=== PATIENT | male | born 1965 | race Caucasian/White ===

== ENCOUNTER → 2017-07-15 | Outpatient (CLI) | payer OTHER ==
[2017-07-15 13:44] LABS: BILIRUBIN,URINE NEGATIVE (NEGATIVE); BLOOD/HEMOGLOBIN,URINE NEGATIVE (NEGATIVE); GLUCOSE, URINE 4+ (NEGATIVE); KETONES,URINE NEGATIVE (NEGATIVE); LEUKOCYTE ESTERASE ,URINE NEGATIVE (NEGATIVE); NITRITES,URINE NEGATIVE (NEGATIVE); PROTEIN,URINE NEGATIVE (NEGATIVE); UROBILINOGEN,URINE NORMAL (NORMAL)
[2017-07-15 13:50] LABS: BASOPHILS % (AUTO) 0.6 % (0.2-1.0); EOSINOPHILS # (AUTO) 0.2 x10^3/uL (0.0-0.2); EOSINOPHILS % (AUTO) 1.9 % (0.9-2.9); HEMATOCRIT 46.4 % (42.0-54.0); HEMOGLOBIN 15.6 g/dL (13.5-18.0); LYMPHOCYTES # (AUTO) 2.4 X10^3/uL (1.3-2.9); LYMPHOCYTES % (AUTO) 28.2 % (21.0-51.0); MEAN CORPUSCULAR HEMOGLOBIN 28.1 pg (27.0-34.0); MEAN CORPUSCULAR HGB CONC 33.5 g/dL (33.0-35.0); MEAN CORPUSCULAR VOLUME 83.8 fL (80.0-100.0); MONOCYTES # (AUTO) 0.6 x10^3/uL (0.3-0.8); MONOCYTES % (AUTO) 6.9 % (0.0-13.0); NEUTROPHILS # (AUTO) 5.3 x10^3/uL (2.2-4.8); NEUTROPHILS % (AUTO) 62.4 % (42.0-75.0); PLATELET COUNT 172 X10^3/uL (150.0-450.0); RED BLOOD COUNT 5.54 X10^6/uL (4.7-6.0); RED CELL DISTRIBUTION WIDTH 13.2 % (11.6-16.5); WHITE BLOOD COUNT 8.4 X10^3/uL (3.6-10.0)
[2017-07-15 13:53] LABS: APPEARANCE,URINE CLEAR (CLEAR); BACTERIA,URINE TRACE /HPF (NEGATIVE); COLOR,URINE YELLOW (YELLOW); RBC,URINE NONE SEEN /HPF (NEGATIVE); SQUAMOUS EPITHELIAL CELL,UR RARE /HPF (NEGATIVE)
[2017-07-15 14:01] LABS: ALANINE AMINOTRANSFERASE 50 Units/L (12-78); ALKALINE PHOSPHATASE 66 Units/L (46-116); ASPARTATE AMINO TRANSFERASE 23 Units/L (15-37); BLOOD UREA NITROGEN 17 mg/dL (7-18); CALCIUM 8.9 mg/dL (8.5-10.1); CARBON DIOXIDE 26.3 mmol/L (21-32); CHLORIDE 104 mmol/L (98-107); COR NA(FOR HYPERGLY) 144 mmol/L (136-145); CREATININE 1.06 mg/dL (0.70-1.30); SODIUM 140 mmol/L (136-145); TOTAL PROTEIN 7.4 g/dL (6.4-8.2); eGFR BLACK RACES > 60 (>60); eGFR NON BLACK RACES > 60 (>60)
--- NOTE | 2017-07-15 14:15 | RAD ---
Examination: Chest, PA and lateral views History: Preop Findings: Normal heart size with clear lungs and pleural spaces. ACDF hardware is present. Impression: Chest examination within normal limits. Reported By:
[2017-07-15 14:33] LABS: ERYTHROCYTE SEDIMENTATION RATE 3 MM/HOUR (0-15)
== END ==
LOC: LAB 13:15
PROVIDERS: ATTEND Orthopaedic Surgery
DX: Z01.818 Encounter for other preprocedural examination (principal); Z79.899 Other long term (current) drug therapy; Z11.8 Encounter for screening for other infectious and parasitic diseases; Z79.01 Long term (current) use of anticoagulants; Z01.811 Encounter for preprocedural respiratory examination; Z01.810 Encounter for preprocedural cardiovascular examination; M75.02 Adhesive capsulitis of left shoulder
CPT/HCPCS: 36415; 71020; 80053; 81001; 85025; 85610; 85652; 85730; 86140; 87640; 87641; 93005; 93010

== ENCOUNTER 2017-07-17 08:19 | Day surgery (SDC) | payer OTHER ==
[2017-07-17] MEDS ORDERED: NS 1000 ML 1,000 ML ONE (08:33)
[2017-07-17] MEDS ORDERED: FENTANYL INJ 100 mcg ONE (10:31)
[2017-07-17] MEDS ORDERED: KENALOG INJ 40 MG IM ONE (10:45)
[2017-07-17] MEDS ORDERED: XYLOCAINE-MPF 1% ONE (10:45)
[2017-07-17] MEDS ORDERED: DILAUDID INJ ONE (11:17)
[2017-07-17] MEDS: DILAUDID INJ IVP PRN ×2 (11:18→11:25)
[2017-07-17] MEDS ORDERED: PHENERGAN INJ 25 MG IVP PRN (11:24)
[2017-07-17] MEDS ORDERED: ZOFRAN INJ 4 MG VIAL IVP PRN (11:24)
[2017-07-17] MEDS ORDERED: REGLAN INJ 10 MG VIAL IVP PRN (11:24)
[2017-07-17] MEDS ORDERED: BENADRYL INJ 50 MG VIAL IVP PRN (11:24)
[2017-07-17] MEDS ORDERED: PERCOCET TAB 5/325 MG PO PRN (11:31)
--- NOTE | 2017-07-17 11:45 | RAD ---
Examination: Left shoulder, three views History: Postop Findings: No evidence for fracture, displacement, bone destruction or pathologic calcification. Sligh t degenerative narrowing of joint spaces. The humeral head is in normal position. Impression: Mild degenerative change, no acute process identified. Reported By:
[2017-07-17 12:25] VITALS: BP 149/76
[2017-07-17] MEDS ORDERED: VERSED ONE (15:44)
[2017-07-17] MEDS ORDERED: SUPRANE IN ONE (15:44)
[2017-07-17] MEDS ORDERED: QUELICIN (OR ANECTINE) ONE (15:44)
[2017-07-17] MEDS ORDERED: DIPRIVAN VIAL ONE (15:44)
[2017-07-17] MEDS ORDERED: XYLOCAINE 2 % (PLAIN) ONE (15:44)
[2017-07-17] MEDS ORDERED: LTA KIT LIDOCAINE 4% ONE (15:44)
--- NOTE | 2017-07-18 13:24 | OR.GENERIC ---
Post-Op Note Generic - Post-Op Note Operative Report: preoperative diagnosis-LEFT shoulder. adhesive capsulitis. Postoperative diagnosis-LEFT shoulder adhesive capsulitis Procedure-LEFT shoulder manipulation under anesthesia Indication-patient 51-year-old male has been dealing with LEFT shoulder pain for many months now. He has tried physical therapy and injections without much improvement. An MRI shows a adhesive capsulitis without any evidence of rotator cuff injury arthritis. He was referred to me for further management by Dr. Aleksander Abdul. Patient didn't want to proceed with arthroscopic capsular release. He wanted to proceed with a manipulation under anesthesia of the LEFT shoulder. Patient was taken to the procedure in detail. Pre-and postop instructions were discussed with him. Need for physical therapy after the medication was also discussed with him. Patient is a known case of diabetic with poor control of his blood sugars and recurrence rates being high in diabetic patients were discussed with him. He understands and verbalizes to same. Complications including but not limited to recurrence, fracture of the proximal humerus, brachial plexus injury, need for prolonged physical therapy and also need for further procedures with feel the complications which were discussed him. He wanted to proceed with the procedure. Procedure-patient was seen in the preoperative holding area. Limb was marked. Patient did cannot get any antibiotic as it was a closed procedure. Consent was again revisited. The patient was brought to the operating room and placed supine on the operating table. Patient was placed under general anesthesia with endotracheal intubation with complete relaxation. I started at the head o with one hand stabilizing the scapula and the other placed in the patient's axilla and my forearm resting against the hole of the inside of the patient's arm. Forward flexion was completed to about 180. Minimal hydration and Next abduction was initiated. stabilizing the scapula in its anatomical position forceful abduction was carried out. Ideations lysis rupture could be felt and heard as the inferior capsule was stretched. Later the forceful abduction was completedthe patient's affected elbow was placed in front of the patient's chin and posterior capsule limitations ruptured for heard and felt. Internal and external rotation was completed. post manipulation using the posterior portal and under sterile precautions and injected the shoulder joint with the Marcaine and Kenalog. Patient was woken up from surgery. Endotracheal tube was taken out. Patient recovered well and his vitals were stable. Patient was shifted to the PACU. Postop x-rays were obtained and no evidence of any fracture was noted. Brachioplexus examination post manipulation was normal. Postoperative instructions were discussed with him. Follow-up instructions and need for physical therapy was discussed with them. He will follow up as advised in my office.
== END 2017-07-17 12:28 | disposition home or self-care (01) ==
LOC: SURG1 08:19
PROVIDERS: ATTEND Orthopaedic Surgery
PROC: 0RNK0ZZ Release Left Shoulder Joint, Open Approach (ICD-10-PCS; principal; 2017-07-17 09:30)
DX: M75.02 Adhesive capsulitis of left shoulder (principal)
CPT/HCPCS: 73030; J0330; J1170; J2001; J2250; J3010; J3301; J3490